=== PATIENT | female | born 1995 | race Caucasian/White ===

== ENCOUNTER 2022-05-30 07:58 | Outpatient (CLI) | payer OTHER, SELFPAY ==
[2022-05-30 14:10] LABS: Chloride* 108 mmol/L (96-114); Potassium* 4.2 mmol/L (3.6-5.1); Sodium* 140 mmol/L (135-149)
[2022-05-30 14:12] LABS: Cholesterol* 198 mg/dL (90-199)
[2022-05-30 14:13] LABS: Blood Urea Nitrogen* 13 mg/dL (5-24); Calcium* 9.7 mg/dL (8.4-10.6); Carbon Dioxide* 28 mmol/L (20-32); Creatinine* 0.7 mg/dL (0.5-1.5); Estimated Glomerular Filt Rate 121 ml/min; Glucose* 92 mg/dL (60-115); Triglycerides* 74 mg/dL (40-149)
[2022-05-30 14:14] LABS: HDL Cholesterol* 53 mg/dL (>=50); LDL Cholesterol Calculated 130 mg/dL (<100)
== END 2022-05-30 07:59 | disposition home or self-care (01) ==
LOC: LKVREF 07:59
PROVIDERS: PCP Emergency Medicine; Visit Provider Emergency Medicine
DX: Z00.00 Encounter for general adult medical examination without abnormal findings (principal); Z13.6 Encounter for screening for cardiovascular disorders
CPT/HCPCS: 80048; 80061

== ENCOUNTER 2022-06-15 10:23 | Outpatient (CLI) | payer OTHER, SELFPAY | END 2022-06-15 10:24 | disposition home or self-care (01) | PROVIDERS: PCP Emergency Medicine; Visit Provider Emergency Medicine | DX: N92.0 Excessive and frequent menstruation with regular cycle (principal) | CPT/HCPCS: 82728; 84443 ==

== ENCOUNTER 2022-06-30 07:53 | Outpatient (CLI) | payer OTHER, SELFPAY ==
--- NOTE | 2022-06-30 08:15 | CRLHL7_ITS ---
For Patients: As a result of the Century Cures Act, medical imaging exams and procedure reports are released immediately into your electronic medical record. You may view this report before your referring provider. If you have questions, please contact your health care provider. INDICATION: Ovarian cyst, menorrhagia COMPARISON: none TECHNIQUE: 2D pressley scale and color Doppler images were acquired of the pelvis using a transabdominal and transvaginal approach. FINDINGS: Sonographic images demonstrate a normal size and smooth outer contour of the uterus. Uterus measures 8.0 cm in length by 4.2 cm in AP diameter by 6.6 cm in transverse dimension. The myometrium has a mildly heterogeneous echotexture. The endometrial lining measures 10 mm in composite thickness. The right ovary measures 3.8 x 1.9 x 2.5 cm in size and the left ovary measures 2.8 x 2.0 x 2.6 cm. The ovaries demonstrate normal arterial and venous blood flow on color Doppler analysis. There are no suspicious fluid collections within the cul-de-sac. IMPRESSION: There is no ovarian cyst. The ovaries are both normal with normal follicles. Endometrial thickness 1 cm. No endometrial fluid. No uterine fibroid. Dictated by Jossue Nguyen MD @ 06/30/2022 8:52:38 AM (Electronically Signed)
== END 2022-06-30 07:54 | disposition home or self-care (01) ==
LOC: US 07:54
PROVIDERS: PCP Emergency Medicine; Visit Provider Emergency Medicine
DX: N92.0 Excessive and frequent menstruation with regular cycle (principal); R93.89 Abnormal findings on diagnostic imaging of other specified body structures; N83.209 Unspecified ovarian cyst, unspecified side
CPT/HCPCS: 76830; 76856